=== PATIENT | female | born 1955 | race Caucasian/White ===

== ENCOUNTER 2016-08-02 05:07 | Inpatient (IN) | payer OTHER ==
[2016-06-28 11:47] VITALS: BMI 23.0
--- NOTE | 2016-06-28 12:11 | PAT Medication Instructions ---
Service Date Jun 28, 2016. Current Home Medication List Acetaminophen (Tylenol), 2 TAB PO Q6 PRN for Pain Calcium (Caltrate), Unknown Dose PO QAM Fiber Laxative (Fiber Laxative), 1 DOSE PO QAM Ibuprofen (Motrin), 400 MG PO Q6H PRN for Pain Multivitamin (Multivitamin), 1 TAB PO QAM Medication Instructions For Your Scheduled Surgery - Hold the following medications 7-10 days prior to surgery as directed by surgeon: Ibuprofen (Motrin), 400 MG PO Q6H PRN for Pain - Hold the following medications the morning of surgery: Calcium (Caltrate), Unknown Dose PO QAM Fiber Laxative (Fiber Laxative), 1 DOSE PO QAM Multivitamin (Multivitamin), 1 TAB PO QAM - Take the following medications the morning of surgery with a sip of water OTHERWISE NOTHING TO EAT OR DRINK AFTER MIDNIGHT: Acetaminophen (Tylenol), 2 TAB PO Q6 PRN for Pain (may take up to 4 hours prior to surgery if needed) If you have any questions please call us at [phone] or [phone] or [phone]
[2016-06-28 12:41] LABS: BASO % 0.4 %; BASO ABS # 0.02 K/uL (0-0.2); COMPLETE YES; EOS % 4.1 %; HEMATOCRIT 41.5 % (37-47); MEAN CELL VOLUME 87.4 fL (80-100); MEAN CORPUSCULAR HEMOGLOBIN 30.5 pg (25-34); MEAN CORPUSCULAR HGB CONC 34.9 g/dl (32-36); MEAN PLATELET VOLUME 10.2 fL (7.4-10.4); MONO % 9.7 %; NEUT % 57.8 %; PLATELET COUNT 205 K/uL (130-400); RED BLOOD COUNT 4.75 M/uL (4.2-5.4); WHITE BLOOD COUNT 4.64 K/uL (4.8-10.8)
[2016-06-28 12:51] LABS: URINE APPEARANCE CLEAR (CLEAR); URINE BILIRUBIN NEG (NEG); URINE COLOR YELLOW; URINE NITRITE NEG (NEG); URINE PH 7.5 (4.5-7.5); URINE SPECIFIC GRAVITY 1.021 (1.000-1.030); UROBILINOGEN NEG (NEG)
[2016-06-28 12:55] LABS: MANUAL MICROSCOPIC REQUIRED? NO; REVIEW REQ? NO
[2016-06-28 12:59] LABS: PARTIAL THROMBOPLASTIN RATIO 1.1; PROTHROMBIN TIME (PATIENT) 10.8 SECONDS (9.0-12.0)
[2016-06-28 13:10] LABS: CALCIUM 9.3 mg/dl (8.5-10.1); CREATININE 0.68 mg/dl (0.60-1.20); POTASSIUM 4.5 mmol/L (3.5-5.1)
--- NOTE | 2016-06-28 13:14 | DIAGNOSTIC IMAGING REPORT ---
CHEST 2 VIEWS ROUTINE CLINICAL HISTORY: pat preoperative evaluation COMPARISON STUDY: 01/19/2012 FINDINGS: Several small scattered calcified granulomas unchanged. No acute infiltrate. Diaphragms are smooth. No evidence for cardiac enlargement. IMPRESSION: No acute process. Electronically signed by: Tyrell Bone M.D. 06/28/2016 1:13 PM Dictated Date/Time: 06/28/2016 1:12 PM
[2016-06-28 13:40] LABS: ESTIMATED AVERAGE GLUCOSE 114 mg/dl; HA1C FLAG Normal (Normal)
--- NOTE | 2016-07-26 15:04 | History and Physical ---
History & Physical Date Jul 26, 2016. Chief Complaint Left Knee Pain History of Present Illness Lillie is a pleasant 60-year-old female who presents for preoperative evaluation prior to a left knee replacement. Patient states that they have been having pain in this knee for many years now, which has gradually worsened, it has now gotten to the point it is affecting her daily activities including walking, standing, going up and down steps. Patient has tried and failed conservative measures including previous injections and PO NSAIDs with no relief. At this point in time, patient has failed conservative measures and would like to proceed with a left knee replacement. Past Medical/Surgical History Medical Problems: (1) Esophageal Reflux Additional History Hepatic Disease: No Endocrine Disorder: No Kidney Disease: No Hypertension: No Heart Disease: No Bleeding Tendencies: No Infectious Diseases: No Allergies Coded Allergies: No Known Allergies (Unverified , 06/28/16) Home Medications Scheduled Calcium (Caltrate), Unknown Dose PO QAM Fiber Laxative (Fiber Laxative), 1 DOSE PO QAM Multivitamin (Multivitamin), 1 TAB PO QAM Scheduled PRN Acetaminophen (Tylenol), 2 TAB PO Q6 PRN for Pain Ibuprofen (Motrin), 400 MG PO Q6H PRN for Pain Physical Examination Skin: warm/dry, no rash Eyes: normal inspection, EOMI, sclerae normal ENT: normal ENT inspection, pharynx normal Head: normocephalic, atraumatic Neck: supple, no adenopathy, trachea midline Cardiovascular: regular rate, rhythm, no edema, no murmur Abdomen / GI: normal bowel sounds, non tender Addiitonal Comments: Knee ROM L * Active ROM - Flexion: 100 degrees, Extension: 5 degrees, Factors: pain, Description: Active painful ROM. Knee ROM R * Active ROM - Flexion: 100 degrees, Extension: 5 degrees, Factors: pain, Description: Active painful ROM. Strength LE Normal Strength Description - Normal lower extremity: Bilateral. Knee * Inspection - Gait: Limp. Alignment - Right: neutral, Left: neutral. Ecchymosis - Right: negative, Left: negative. Effusion - Right: mild, Left: mild. Swelling - Right: mild, Left: mild. Flexibility - Left: normal. Maximum tenderness - Right: Medial Joint Line, Left: Medial Joint Line. Patella exam - Crepitation - Right: mild, Left: mild. Patella position - Right: neutral, Left: neutral. Tilt - Left: equal. [facility]'s - medial - Left: Positive. Knee Normal Inspection - Atrophy - Right: Absent, Left: Absent. Skin - Right: Normal, Left: Normal. Patella exam - Apprehension - Right: Negative, Left: Negative. Q-angle - Right: Normal, Left: Normal. Omega's - Left: Negative. Harman's - lateral - Left: Negative. Posterior drawer - Right: Negative, Left : Negative. Anterior drawer - Right: Negative, Left: Negative. Pivot shift - Left: Negative. Valgus stress - Left: Negative. Varus stress - Left: Negative. Extensor lag - Left: Normal. Neurovascular LE Normal Neurovascular examination including reflexes, sensation , and pulses is within normal limits. LEFT KNEE XRAY Xrays reviewed of the Left knee showing findings consistent with degenerative joint disease including joint space narrowing, subchondral sclerosis and peripheral osteophyte formation. no acute bony pathology, overall varus alignment. Impression: degenerative joint disease of the left knee with no acute bony pathology noted. Diagnosis 1) Left knee DJD- Further care discussed with patient and at this point in time has failed conservative measures and would like to proceed with a left total knee replacement. Plan on discharge will be home with outpatient physical therapy. DVT prophalaxis with TEDs, SCDs and will also place on aspirin 81 mg p.o. b.i.d. for a month postop. Patient will have follow up appointment in our office two weeks post op for staple/suture removal and re-evaluation. Patient otherwise has no other questions or concerns. 2) GERD
[2016-08-02] VITALS (9 sets, daily range): BP systolic 92–139; BP diastolic 56–81; PULSE 66–78; TEMP 36.4–36.7; O2SAT 95–100; Ht 162.6 cm; Wt 62.4 kg
[~2016-08-02] VITALS: Ht 162.6 cm; Wt 62.4 kg
[~2016-08-02 05:07] MED LIST: ACET-1256 PO; CALCTAB5 PO; FIBER PO; IBUP-1459 PO; MULT-506 PO
[2016-08-02] MEDS ORDERED: ACETAMINOPHEN 500 MG TAB PO SCH (06:00)
[2016-08-02] MEDS ORDERED: FAMOTIDINE 20 MG TAB PO SCH (06:00)
[2016-08-02] MEDS ORDERED: LACTATED RINGER'S 1000ML 500 ML IV ONE (06:00)
[2016-08-02] MEDS ORDERED: CeleBREX 200 MG CAP PO SCH (06:00)
[2016-08-02] MEDS ORDERED: GABAPENTIN 300 MG CAP PO SCH (06:00)
[2016-08-02] MEDS ORDERED: METOCLOPRAMIDE HCL 10 MG TAB PO SCH (06:00)
[2016-08-02] MEDS ORDERED: CEFAZOLIN 2000 MG/60 ML D5W 60 ML IV SCH (06:00)
[2016-08-02] MEDS ORDERED: DEXAMETHASONE 4 MG TAB PO SCH (06:00)
[2016-08-02] MEDS ORDERED: LACTATED RINGER'S 1000ML IV SCH (06:00)
[2016-08-02] MEDS ORDERED: LACTATED RINGER'S 1000ML 1,000 ML IV SCH (06:00)
[2016-08-02] MEDS ORDERED: ROPIVACAINE 5MG/ML 30 ML 150 MG, BUPIVACAINE/EPINEPHR 0.5% MPF 30 ML, KETOROLAC TROMETH... INFIL SCH ×7 (06:00)
[2016-08-02] MEDS: TRANEXAMIC ACID INJ 1,000 MG in SODIUM CHLORIDE 0.9% 100ML 100 ML IV SCH ×2 (06:11→12:26)
[2016-08-02] MEDS ORDERED: BUPIVACAINE 0.25% 30 ML VIAL ONE (06:33)
[2016-08-02] MEDS ORDERED: BUPIVACAINE 0.5 % 5 MG/1 ML PF 10ML VIAL ONE (06:33)
[2016-08-02] MEDS ORDERED: POVIDONE-IODINE OP SOLN 30 ML BTL ONE (06:40)
[2016-08-02] MEDS ORDERED: BACITRACIN 50000 UNIT VIAL ONE (06:40)
[2016-08-02] MEDS ORDERED: ORTHO JOINT ANESTHETIC ONE (06:40)
[2016-08-02] MEDS ORDERED: PROPOFOL IV EMULSION 10 MG/ML 20 ML VIAL IV ONE (06:45)
[2016-08-02] MEDS ORDERED: ONDANSETRON INJ 2 MG/ML 2 ML VIAL ONE (06:45)
[2016-08-02] MEDS ORDERED: MIDAZOLAM HCL 1 MG/ML 2ML VIAL ONE (06:45)
[2016-08-02] MEDS ORDERED: FENTANYL CITRATE INJ 50 MCG/1 ML 2 ML VIAL ONE (06:45)
--- NOTE | 2016-08-02 06:45 | History & Physical Bridge Note ---
H&P Re-Evaluation Bridge Note: I have examined the patient, reviewed the History & Physical and in the interval since the performance of the History & Physical I have noted the following changes of clinical significance: No changes noted
[2016-08-02] MEDS ORDERED: PHENYLEPHRINE HCL INJ 10 MG/ML VIAL ONE (07:37)
[2016-08-02] MEDS ORDERED: EpHEDrine SULFATE INJ 50 MG/ML AMP IV PRN (07:45)
[2016-08-02] MEDS ORDERED: ATROPINE SULFATE 0.1 MG/ML 5ML SYR IV PRN (07:45)
[2016-08-02] MEDS ORDERED: PHENYLEPHRINE 100MCG/ML 5ML SYR IV PRN (07:45)
[2016-08-02] MEDS ORDERED: ONDANSETRON INJ 2 MG/ML 2 ML VIAL IV PRN ×2 (07:45→08:45)
[2016-08-02] MEDS ORDERED: HYDROmorphone INJ 2 MG/ML SYR/VIAL IV PRN (07:45)
[2016-08-02] MEDS ORDERED: KETOROLAC TROMETHAMINE 30 MG/ML VIAL IV. PRN ×2 (07:45→08:45)
--- NOTE | 2016-08-02 07:53 | [facility] Post Operative Brief Note ---
Immediate Operative Summary Operative Date Aug 02, 2016. Pre-Operative Diagnosis Left knee degenerative joint disease Post-Operative Diagnosis Same as preop Procedure(s) Performed Left total knee arthroplasty Surgeon Dr. Huber Aerospace Technician Surgeon(s) Mello Sandoval PA-C Estimated Blood Loss 5 cc Findings severe djd lt knee Specimens A: left knee bone and tissue Complication(s) None Disposition Recovery Room / PACU
--- NOTE | 2016-08-02 08:34 | OPERATIVE REPORT ---
DATE OF OPERATION: 08/02/2016 PREOPERATIVE DIAGNOSIS: Severe end-stage tricompartmental degenerative joint disease left knee. POSTOPERATIVE DIAGNOSIS: Severe end-stage tricompartmental degenerative joint disease left knee. PROCEDURE: Left total knee arthroplasty utilizing Browne \T\ Nephew Journey II nonblock total knee arthroplasty size 4 femur, 4 tibia, 9 poly, 29 oval patella. SURGEON: Dr. Huber. CLERICAL SECRETARY: Tyrell Sandoval PA-C who was necessary for prepping, draping, retraction, wound closure of deep fascia, subQ, and skin and was necessary for the case. ESTIMATED BLOOD LOSS: 5 mL. TOURNIQUET TIME: 40 minutes. COMPLICATIONS: None. GROSS FINDINGS: The patient is a very pleasant 60-year-old white female being seen and evaluated for complaints of ongoing pain attributable to her left knee. She presents for left total knee arthroplasty. OPERATION AND FINDINGS: PROCEDURE: The patient was properly prepped and draped in supine position for total knee arthroplasty after identifying the appropriate surgical site. An anterior midline incision was made through the subcutaneous tissues down to the region of the extensor mechanism. A medial parapatellar incision was subsequently made. Meticulous hemostasis was obtained and performed at all times. The patella having been subluxed lateralward, medial and lateral meniscal remnants were excised. The patellar cut was then initially made and was sized to the appropriate size. After subluxing the tibia forward the appropriate meniscal fragments having been removed the distal femur was then cut first utilizing a Browne \T\ Nephew block. The distal femoral cuts and chamfer cuts were all made under direct visualization and the proximal tibial osteotomy cut was also made utilizing Browne \T\ Nephew blocks and checked with an extramedullary guide. The appropriate trial components on the femur and tibia were placed. Appropriate trial spacers were used to check flexion and extension gaps. With flexion and extension gaps being equal, the components were then subsequently after thorough irrigation and debridement lavage components were then subsequently cemented in the following order: femur, tibia and patella. Exparel was used for intraoperative anesthesia, the medial parapatellar incision was closed utilizing #1 Vicryl, subQ was closed with 2-0 Vicryl, skin was closed with skin clips. A sterile compression dressing was placed. The patient was taken to recovery room in stable condition. Due to the complex nature of the procedure, the entire surgery was performed with the operational assistance of Tyrell Sandoval PA-C. The state tested nursing assistant, under direct supervision, was involved in the actual performance of all aspects of the surgical procedure including hemostasis, tissue retraction and incision, instrument management, patient positioning, and wound closure. I attest to the content of the Intraoperative Record and any orders documented therein. Any exceptio ns are noted below.
[2016-08-02] MEDS ORDERED: ALUMINUM/MAGNESIUM/SIMETH (MAALOX MAX) 30 ML UDC PO PRN (08:45)
[2016-08-02] MEDS ORDERED: METOCLOPRAMIDE HCL INJ 5 MG/ML 2 ML VIAL IV PRN (08:45)
[2016-08-02] MEDS ORDERED: SOD PHOSPHATE/SOD BIPHOSPHATE ENEMA 132 ML BTL PR PRN (08:45)
[2016-08-02] MEDS ORDERED: MAGNESIUM HYDROXIDE SUSP 30 ML UDC PO PRN (08:45)
[2016-08-02] MEDS ORDERED: BISACODYL 10 MG SUPP PR PRN (08:45)
[2016-08-02] MEDS ORDERED: MoRPHine SULFATE 2 MG/ML CARP IV PRN (08:45)
--- NOTE | 2016-08-02 08:52 | Anesthesiology Progress Note ---
Anesthesia Post Op Note Date & Time Aug 02, 2016 at 08:52 Vital Signs Pain Intensity: 0 Vital Signs Past 12 Hours Date Time Temp Pulse Resp B/P Pulse Ox O2 Delivery O2 Flow Rate FiO2 08/02/16 08:28 36.2 96 16 114/53 96 Mask 10 08/02/16 05:38 36.6 75 20 139/81 100 Room Air Notes Mental Status: alert / awake / arousable, participated in evaluation Pt Amnestic to Procedure: Yes Nausea / Vomiting: adequately controlled Pain: adequately controlled Airway Patency, RR, SpO2: stable & adequate BP & HR: stable & adequate Hydration State: stable & adequate Neuraxial Anesthesia: was administered, sensory block is resolving Anesthetic Complications: no major complications apparent
--- NOTE | 2016-08-02 08:57 | DIAGNOSTIC IMAGING REPORT ---
LEFT KNEE 1 OR 2 VIEWS ROUTINE CLINICAL HISTORY: Postoperative evaluation. COMPARISON: MRI of the left knee June 10, 2015. FINDINGS: Alignment of the left knee arthroplasty is anatomic. There is no fracture or unexpected radiopaque foreign body. Drains are in place. IMPRESSION: Expected findings following total left knee arthroplasty. Electronically signed by: Guille Palacio M.D. 08/02/2016 8:56 AM Dictated Date/Time: 08/02/2016 8:56 AM
[2016-08-02] MEDS ORDERED: MoRPHine SULFATE 10 MG/ML CARP/VIAL IV PRN (10:00)
[2016-08-02] MEDS ORDERED: MoRPHine SULFATE 4 MG/ML 1 ML CARP\\VIAL IV PRN (10:00)
[2016-08-02] MEDS: DOCUSATE SODIUM 100 MG CAP PO SCH ×2 (12:26→21:06)
[2016-08-02] MEDS: PANTOprazole SOD 40 MG TAB PO SCH (12:27)
[2016-08-02] MEDS: MULTIVITAMIN TAB PO SCH (12:27)
[2016-08-02] MEDS: D5W AND 1/2NSS + 20MEQ KCL 1,000 ML IV SCH ×2 (12:28→22:29)
[2016-08-02] MEDS: ACETAMINOPHEN 500 MG TAB PO SCH ×2 (14:02→22:29)
[2016-08-02] MEDS: CEFAZOLIN IV 1,000 MG in DEXTROSE 5% 50ML 50 ML IV SCH ×2 (15:15→22:29)
[2016-08-02] MEDS: OXYCODONE HCL 10 MG TABCR (OXYCONTIN) PO SCH (21:00)
[2016-08-02] MEDS: SENNA 8.6 MG TAB PO SCH (21:06)
[2016-08-02] MEDS: ASPIRIN 81 MG ECTAB PO SCH (21:06)
[2016-08-03 03:34] VITALS: BP 108/65; PULSE 72; TEMP 36.6; O2SAT 98
[2016-08-03] MEDS: ACETAMINOPHEN 500 MG TAB PO SCH ×3 (05:38→20:57)
[2016-08-03 06:49] LABS: MEAN CORPUSCULAR HEMOGLOBIN 29.6 pg (25-34); MEAN CORPUSCULAR HGB CONC 34.4 g/dl (32-36); MEAN PLATELET VOLUME 10.4 fL (7.4-10.4); PLATELET COUNT 154 K/uL (130-400); RED BLOOD COUNT 3.72 M/uL (4.2-5.4); WHITE BLOOD COUNT 11.02 K/uL (4.8-10.8)
[2016-08-03 06:56] VITALS: BP 109/52; PULSE 71; TEMP 36.8; O2SAT 99
[2016-08-03 07:01] LABS: PROTHROMBIN TIME (PATIENT) 10.7 SECONDS (9.0-12.0)
[2016-08-03 07:14] LABS: BUN/CREATININE RATIO 21.6 (10-20); CALCIUM 8.5 mg/dl (8.5-10.1); CREATININE 0.64 mg/dl (0.60-1.20)
--- NOTE | 2016-08-03 08:24 | Anesthesiology Progress Note ---
Anesthesia Post Op Note Date & Time Aug 03, 2016 at 08:24 Vital Signs Pain Intensity: 0.0 Vital Signs Past 12 Hours Date Time Temp Pulse Resp B/P Pulse Ox O2 Delivery O2 Flow Rate FiO2 08/03/16 07:35 Room Air 08/03/16 06:56 36.8 71 17 109/52 99 Room Air 08/03/16 03:34 36.6 72 16 108/65 98 Room Air 08/03/16 00:32 Room Air 08/02/16 23:18 36.6 72 16 102/63 98 Room Air Notes Mental Status: alert / awake / arousable, participated in evaluation Pt Amnestic to Procedure: Yes Nausea / Vomiting: adequately controlled Pain: adequately controlled Airway Patency, RR, SpO2: stable & adequate BP & HR: stable & adequate Hydration State: stable & adequate Neuraxial Anesthesia: sensory block resolved Anesthetic Complications: no major complications apparent
[2016-08-03] MEDS: D5W AND 1/2NSS + 20MEQ KCL 1,000 ML IV SCH (08:51)
[2016-08-03] MEDS: ASPIRIN 81 MG ECTAB PO SCH ×2 (08:51→20:56)
[2016-08-03] MEDS: DOCUSATE SODIUM 100 MG CAP PO SCH ×2 (08:51→20:56)
[2016-08-03] MEDS: MULTIVITAMIN TAB PO SCH (08:52)
[2016-08-03] MEDS: OXYCODONE HCL 10 MG TABCR (OXYCONTIN) PO SCH ×2 (08:52→20:57)
[2016-08-03] MEDS: PANTOprazole SOD 40 MG TAB PO SCH (08:52)
[2016-08-03] MEDS: CeleBREX 200 MG CAP PO SCH ×2 (08:53→20:56)
[2016-08-03] MEDS: OXYCODONE HCL IR 5 MG TAB (IMMEDIATE RELEASE) PO PRN ×2 (10:02→15:18)
--- NOTE | 2016-08-03 10:36 | Orthopedic Progress Note ---
Orthopedic Progress Note Date of Service Aug 03, 2016. Subjective Post OP Day: 1 Reports: feeling well, Denies: SOB, calf pain, chest pain, light headedness, nausea / vomiting Objective calves soft nontender, N/V intact, dressing C/D/I, A&O x3, toes mobile Date Time Temp Pulse Resp B/P Pulse Ox O2 Delivery O2 Flow Rate FiO2 08/03/16 07:35 Room Air 08/03/16 06:56 36.8 71 17 109/52 99 Room Air 08/03/16 03:34 36.6 72 16 108/65 98 Room Air 08/03/16 00:32 Room Air 08/02/16 23:18 36.6 72 16 102/63 98 Room Air 08/02/16 19:09 36.7 78 17 97/60 95 Room Air 08/02/16 16:04 Nasal Cannula 2.0 08/02/16 15:24 36.6 68 16 101/59 99 Nasal Cannula 2.0 08/02/16 13:59 36.4 76 16 93/56 98 Nasal Cannula 2.0 08/02/16 13:00 36.5 77 16 92/57 98 Nasal Cannula 2.0 08/02/16 12:00 36.5 66 16 97/62 99 Nasal Cannula 2.0 08/02/16 11:20 36.5 73 16 114/68 99 Nasal Cannula 2.0 08/02/16 11:00 36.7 16 114/69 98 Nasal Cannula 2.0 08/02/16 11:00 98 Nasal Cannula 2.0 08/02/16 11:00 Nasal Cannula 2.0 08/02/16 10:35 97 Nasal Cannula 2.0 Laboratory Results 24 Hours: Test 08/03/16 06:25 Hematocrit 32.0 % Hemoglobin 11.0 g/dL Prothromb Time International Ratio 1.0 Prothrombin Time 10.7 SECONDS Assessment & Plan Assessment: POD 1 s/p Left TKA Plan: PT/OT Plan for dc to home tomorrow with Home Health Services Inhouse Planning Pain Management: Celebrex, Oxycontin, Morphine, PO Tylenol, Oxy IR DVT Prophylaxis: TEDs, SCDs, ASA Discharge Planning Discharge Planning: home with home health Pain Management: Celebrex, Oxycontin, PO Tylenol, Oxy IR DVT Prophylaxis: TEDs, ASA Therapy: Physical Therapy
[2016-08-03 11:29] VITALS: BP 93/50; PULSE 86; TEMP 36.8; O2SAT 96
--- NOTE | 2016-08-03 13:26 | Discharge Instructions ---
Discharge Instructions Date of Service Aug 03, 2016. Admission Reason for Admission: Left Knee Osteoarthritis Discharge Discharge Diagnosis / Problem: Left Total Knee Replacement Discharge Goals Goal(s): Decrease discomfort, Improve function, Increase independence Activity Recommendations Activity Limitations: as noted below Weightbearing Status: Left weightbearing . Instructions / Follow-Up Instructions / Follow-Up ACTIVITY RECOMMENDATIONS: SELF CARE INSTRUCTIONS AFTER TOTAL KNEE REPLACEMENT A. You may need to continue a physical therapy program after discharge from the hospital. There are several options available to you. Your doctor will assist you in selecting the best one for you. 1. An out-patient facility 2 to 3 times a week for therapy or home therapy. 2. Continue working on all exercises taught to you in the hospital. Your goals should be to increase bending of your knee to 90 degrees and beyond and to fully straighten your knee. B. You may progress at your own pace from walking with a walker or crutches to a cane; then to no assistive devices. C. Make walking a part of your daily routine. Be up as much as comfortable with rest periods throughout the day. Rest with leg elevation is very important. Use the ice wrap frequently for the first 3-4 weeks. D. There are no restrictions on activities. 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 E. Wear the long elastic stockings (MAYELA hose) 20 hours a day for 2 weeks after surgery. They can be removed several times a day for laundering and for a bath. F. You may shower, no tub baths until cleared by your doctor. SPECIAL CARE INSTRUCTIONS: VERY IMPORTANT TO READ AND REVIEW A. There are a few signs you need to watch for after you are home. Call [facility] if you notice any of the followin. Increased severe knee pain. Some pain is expected especially when you exercise. 2. Increased swelling in your leg or knee; pain or swelling of the calf muscle in either lower leg. 3. Any fluid drainage from the incision. 4. Shortness of breath or chest pain. B. Please call [facility] at if you have any concerns or questions about your operation or recovery. The doctor or his nurse will return your call promptly. C. You must take antibiotics before dental work, bladder, bowel or other surgery. Your doctor will provide you with a permanent care to carry describing this precaution. IMPORTANT: * REMEMBER TO TAKE ASPIRIN, 81 MG, TWICE DAILY FOR 4 WEEKS UNLESS OTHERWISE DIRECTED. THIS IS YOUR BLOOD THINNER. * HIGH RISK PATIENTS MAY BE PRESCRIBED A STRONGER BLOOD THINNER. THIS WILL BE PROVIDED AT DISCHARGE. * CALL IF INCREASED PAIN, REDNESS, DRAINAGE OR FEVER GREATER THAT 101. * WEAR MAYELA HOSE 20 HOURS PER DAY FOR 2 WEEKS. * DERMABOND Prineo- This is a mesh tape dressing that is covered with glue. It should remain in place until the incision is properly healed, usually 10-14 days. This dressing is designed to naturally slough off. You may trim the excess mesh tape as it peels off. Incision may be briefly wet in a shower. Dry immediately by blotting with a clean, dry towel. Do not bath or swim until instructed by your doctor. Do not scratch, rub, or pick at the dressing. Do not apply any topical ointments or lotions until dressing is completely removed and/or instructed by your doctor. There may be a small piece of suture material at one end of your incision. Do not pull or trim this. If it is bothersome or catching on clothing, you may cover it with a band-aid. FOLLOW UP VISIT: If appointment is not already scheduled: Please call [facility] to make a follow-up appointment for 2 weeks after your surgery at . Current Hospital Diet Patient's current hospital diet: Regular Diet Discharge Diet Recommended Diet: Regular Diet Procedures Procedures Performed: Left total knee arthroplasty Pending Studies Studies pending at discharge: no Laboratory Results Hemoglobin A1c Test 06/28/16 12:16 Range/Units Estimated Average Glucose 114 mg/dl Hemoglobin A1c 5.6 4.5-5.6 % Medical Emergencies . Who to Call and When: Medical Emergencies: If at any time you feel your situation is an emergency, please call 911 immediately. . Non-Emergent Contact Non-Emergency issues call your: Primary Care Provider, Surgeon . "Provider Documentation" section prepared by Tyrell Sandoval. VTE Core Measure Inpt VTE Proph given/why not?: Other Anticoagulation (ASA 81mg po bid x 1 month ), T.E.Didier Garcia, SCD's [place] Drug Monitoring Program Search Results: patient reviewed within database
[2016-08-03 15:07] VITALS: BP 112/64; PULSE 85; TEMP 37; O2SAT 99
[2016-08-03] MEDS: SENNA 8.6 MG TAB PO SCH (20:56)
[2016-08-03 23:23] VITALS: BP 110/70; PULSE 82; TEMP 36.8; O2SAT 98
[2016-08-04] MEDS: ACETAMINOPHEN 500 MG TAB PO SCH (05:50)
[2016-08-04 06:10] VITALS: BP 111/70; PULSE 80; TEMP 36.5; O2SAT 99
--- NOTE | 2016-08-04 07:05 | Orthopedic Progress Note ---
Orthopedic Progress Note Date of Service Aug 04, 2016. Subjective Post OP Day: 2 Reports: feeling well, pain controlled w PO medications, Denies: SOB, calf pain , chest pain, complaints, light headedness, nausea / vomiting Objective calves soft nontender, N/V intact, capillary refill less than 2 sec., incision C /D/I, A&O x3, toes mobile Date Time Temp Pulse Resp B/P Pulse Ox O2 Delivery O2 Flow Rate FiO2 08/04/16 06:10 36.5 80 16 111/70 99 Room Air 08/04/16 00:15 Room Air 08/03/16 23:23 36.8 82 16 110/70 98 Room Air 08/03/16 15:07 37.0 85 18 112/64 99 Room Air 08/03/16 11:50 Room Air 08/03/16 11:29 36.8 86 17 93/50 96 Room Air 08/03/16 07:35 Room Air Assessment & Plan Assessment: POD 2 s/p Left TKA Plan: PT/OT Plan for dc to home today after PT with Home Health Services Discharge Planning Discharge Planning: home with home health Pain Management: Celebrex, Oxycontin, PO Tylenol, Oxy IR DVT Prophylaxis: TEDs, ASA Therapy: Physical Therapy
[2016-08-04] MEDS ORDERED: OXYSR10 PO (07:20)
[2016-08-04] MEDS ORDERED: ASPEC81 PO (07:20)
[2016-08-04] MEDS ORDERED: CLC100 PO (07:20)
[2016-08-04] MEDS ORDERED: RXC5 PO (07:20)
[2016-08-04] MEDS ORDERED: CLB200 PO (07:20)
[2016-08-04] MEDS ORDERED: ONDA8TAB6 PO (07:20)
[2016-08-04] MEDS ORDERED: ACET-1138 PO (07:20)
--- NOTE | 2016-08-04 07:23 | Discharge Summary ---
Orthopedic Discharge Summary Admission Date/Reason Aug 02, 2016 at 08:38 Left Knee Osteoarthritis. Discharge Date/Disposition Aug 04, 2016 Home with services Diagnosis Principal Diagnosis: left knee osteoarthritis Procedure(s) Performed PROCEDURE: Left total knee arthroplasty utilizing Browne \T\ Nephew Journey II nonblock total knee arthroplasty size 4 femur, 4 tibia, 9 poly, 29 oval patella. Consultations NONE Medication Reconciliation New Medications: Ondansetron Hcl (Zofran) 8 Mg Tab 8 MG PO Q8 PRN for Nausea, #20 TAB Acetaminophen (Tylenol Extra Strength) 500 Mg Tab 1000 MG PO Q8H, #126 TAB Aspirin (Aspirin EC Low Dose) 81 Mg Ectab 81 MG PO BID for 30 Days, #60 TAB Celecoxib (Celebrex) 200 Mg Cap 200 MG PO BID, #60 CAP Docusate Sodium (Docusate Sodium) 100 Mg Cap 100 MG PO BID for 15 Days, #30 CAP Oxycodone HCl (Oxycontin) 10 Mg Tabcr 10 MG PO Q12, #20 Oxycodone HCl (Oxycodone HCl) 5 Mg Tab 5-10 MG PO Q4H PRN for Pain, #60 TAB Continued Medications: Calcium (Caltrate) Unknown Strength Tab Unknown Dose PO QAM, TAB Fiber Laxative (Fiber Laxative) Ea 1 DOSE PO QAM Multivitamin (Multivitamin) Tab 1 TAB PO QAM, TAB Discontinued Medications: Acetaminophen (Tylenol) 500 Mg Tab 2 TAB PO Q6 PRN for Pain, TAB Ibuprofen (Motrin) 400 Mg Tab 400 MG PO Q6H PRN for Pain, TAB Admission Physical Exam As per Admitting History & Physical. Hospital Course Patient was a same day admission after undergoing a successful left TKA. she tolerated the procedure well. Post-operatively, her activity was progressed and well tolerated. Please refer to daily progress notes and PT notes for complete details. After exam on 08/04/16, patient felt to be stable for discharge home with home PT. Patient will f/u in the office in 2 weeks for further evaluation including x-rays and incision check, sooner if having any issues or concerns. Below are pertinent labs/studies during their hospital stay: Last Resulted CBC 08/03/16 06:25 Last Resulted BMP 08/03/16 06:25 Last Vital Signs Documentation Date Time Temp Pulse Resp B/P Pulse Ox O2 Delivery O2 Flow Rate FiO2 08/04/16 06:10 36.5 80 16 111/70 99 Room Air 08/02/16 16:04 2.0 Discharge Instructions ACTIVITY RECOMMENDATIONS: SELF CARE INSTRUCTIONS AFTER TOTAL KNEE REPLACEMENT A. You may need to continue a physical therapy program after discharge from the hospital. There are several options available to you. Your doctor will assist you in selecting the best one for you. 1. An out-patient facility 2 to 3 times a week for therapy or home therapy. 2. Continue working on all exercises taught to you in the hospital. Your goals should be to increase bending of your knee to 90 degrees and beyond and to fully straighten your knee. B. You may progress at your own pace from walking with a walker or crutches to a cane; then to no assistive devices. C. Make walking a part of your daily routine. Be up as much as comfortable with rest periods throughout the day. Rest with leg elevation is very important. Use the ice wrap frequently for the first 3-4 weeks. D. There are no restrictions on activities. You may ride in a car, shop, participate in vet assistant and all social activities. E. Wear the long elastic stockings (MAYELA hose) 20 hours a day for 2 weeks after surgery. They can be removed several times a day for laundering and for a bath. F. You may shower, no tub baths until cleared by your doctor. SPECIAL CARE INSTRUCTIONS: VERY IMPORTANT TO READ AND REVIEW A. There are a few signs you need to watch for after you are home. Call [facility] if you notice any of the followin. Increased severe knee pain. Some pain is expected especially when you exercise. 2. Increased swelling in your leg or knee; pain or swelling of the calf muscle in either lower leg. 3. Any fluid drainage from the incision. 4. Shortness of breath or chest pain. B. Please call [facility] at if you have any concerns or questions about your operation or recovery. The doctor or his nurse will return your call promptly. C. You must take antibiotics before dental work, bladder, bowel or other surgery. Your doctor will provide you with a permanent care to carry describing this precaution. IMPORTANT: * REMEMBER TO TAKE ASPIRIN, 81 MG, TWICE DAILY FOR 4 WEEKS UNLESS OTHERWISE DIRECTED. THIS IS YOUR BLOOD THINNER. * HIGH RISK PATIENTS MAY BE PRESCRIBED A STRONGER BLOOD THINNER. THIS WILL BE PROVIDED AT DISCHARGE. * CALL IF INCREASED PAIN, REDNESS, DRAINAGE OR FEVER GREATER THAT 101. * WEAR MAYELA HOSE 20 HOURS PER DAY FOR 2 WEEKS. * DERMABOND Prineo- This is a mesh tape dressing that is covered with glue. It should remain in place until the incision is properly healed, usually 10-14 days. This dressing is designed to naturally slough off. You may trim the excess mesh tape as it peels off. Incision may be briefly wet in a shower. Dry immediately by blotting with a clean, dry towel. Do not bath or swim until instructed by your doctor. Do not scratch, rub, or pick at the dressing. Do not apply any topical ointments or lotions until dressing is completely removed and/or instructed by your doctor. There may be a small piece of suture material at one end of your incision. Do not pull or trim this. If it is bothersome or catching on clothing, you may cover it with a band-aid. FOLLOW UP VISIT: If appointment is not already scheduled: Please call [facility] to make a follow-up appointment for 2 weeks after your surgery at .
[2016-08-04] MEDS: CeleBREX 200 MG CAP PO SCH (07:36)
[2016-08-04] MEDS: ASPIRIN 81 MG ECTAB PO SCH (07:36)
[2016-08-04] MEDS: MULTIVITAMIN TAB PO SCH (07:36)
[2016-08-04] MEDS: DOCUSATE SODIUM 100 MG CAP PO SCH (07:36)
[2016-08-04] MEDS: OXYCODONE HCL 10 MG TABCR (OXYCONTIN) PO SCH (07:37)
[2016-08-04] MEDS: PANTOprazole SOD 40 MG TAB PO SCH (07:37)
[2016-08-04 07:46] VITALS: BP 118/60; PULSE 80; TEMP 36.6; O2SAT 97
[2016-08-04 08:26] VITALS: BP 118/60; PULSE 80; TEMP 36.6; O2SAT 97
[2016-08-04 09:03] VITALS: O2SAT 97
[2016-08-04 09:26] VITALS: BP 106/63; PULSE 81
== END 2016-08-04 10:38 | disposition home health service (06) | DRG 470 ==
LOC: ENRESERVDT → ENRESERVTM → C.ACU 05:07 → C.3E 08:38
PROVIDERS: ADMIT Orthopaedic Surgery; ATTEND Orthopaedic Surgery
PROC: 0SRD0J9 Replacement of Left Knee Joint with Synthetic Substitute, Cemented, Open Approach (ICD-10-PCS; principal; 2016-08-02 07:00)
DX: M17.12 Unilateral primary osteoarthritis, left knee (principal); K21.9 Gastro-esophageal reflux disease without esophagitis; M54.5 Low back pain; Z79.1 Long term (current) use of non-steroidal anti-inflammatories (NSAID); Z79.899 Other long term (current) drug therapy

== ENCOUNTER → 2016-11-20 | Outpatient (CLI) | payer OTHER ==
[~2016-11-20] MED LIST changes: +ACET-1138 PO; -ACET-1256 PO; +ASPEC81 PO; +CLB200 PO; +CLC100 PO; -IBUP-1459 PO; +ONDA8TAB6 PO; +OXYSR10 PO; +RXC5 PO
[2016-11-20 12:38] LABS: ALT/SGPT 18 U/L (12-78); AST/SGOT 15 U/L (15-37); BLOOD UREA NITROGEN 15 mg/dl (7-18); BUN/CREATININE RATIO 24.5 (10-20); CALCIUM 9.1 mg/dl (8.5-10.1); CARBON DIOXIDE 32 mmol/L (21-32); CHLORIDE 104 mmol/L (98-107); CHOLESTEROL 182 mg/dl (0-200); GLUCOSE 90 mg/dl (70-99); POTASSIUM 4.1 mmol/L (3.5-5.1); SODIUM 141 mmol/L (136-145)
[2016-11-20 12:41] LABS: ALKALINE PHOSPHATASE 106 U/L (45-117); CHOLESTEROL/HDL RATIO 2.8; HDL CHOLESTEROL 65 mg/dl; LDL CHOLESTEROL CALCULATED 106 mg/dl; TRIGLYCERIDES 57 mg/dl (0-150); VERY LOW DENSITY LIPOPROT CALC 11 mg/dl
== END | disposition home or self-care (01) ==
LOC: C.LAB1850 10:40
PROVIDERS: ATTEND Internal Medicine
DX: Z00.00 Encounter for general adult medical examination without abnormal findings (principal); Z13.29 Encounter for screening for other suspected endocrine disorder

== ENCOUNTER → 2016-12-28 | Outpatient (CLI) | payer OTHER | END | disposition home or self-care (01) | LOC: C.MAMM 09:15 | PROVIDERS: ATTEND Internal Medicine | DX: M85.851 Other specified disorders of bone density and structure, right thigh (principal); M85.852 Other specified disorders of bone density and structure, left thigh; M85.88 Other specified disorders of bone density and structure, other site; M81.0 Age-related osteoporosis without current pathological fracture ==

== ENCOUNTER → 2017-02-08 | Outpatient (CLI) | payer OTHER ==
[~2017-02-08] MED LIST changes: -ONDA8TAB6 PO
--- NOTE | 2017-02-08 13:55 | MAMMOGRAPHY REPORT ---
BILATERAL DIGITAL SCREENING MAMMOGRAM TOMOSYNTHESIS WITH CAD: 02/08/2017 CLINICAL HISTORY: Routine screening. Patient has no complaints. TECHNIQUE: Breast tomosynthesis in addition to standard 2D mammography was performed. Current study was also evaluated with a Computer Aided Detection (CAD) system. COMPARISON: Comparison is made to exams dated: 09/16/2015 mammogram, 09/14/2014 mammogram, 09/12/2013 ma mmogram, 09/11/2012 mammogram, 09/11/2011 mammogram, and 09/08/2010 mammogram - [facility] BREAST COMPOSITION: The tissue of both breasts is heterogeneously dense, which may obscure small mas ses. FINDINGS: No suspicious masses, calcifications, or areas of architectural distortion are noted in ei ther breast. There has been no significant interval change compared to prior exams. Scattered bilater al benign-appearing calcifications are not significantly changed. Right superior posterior breast as ymmetry on the MLO view is similar to prior exams including the 2014 and 2011 exams, and has the appe arance of normal fibroglandular tissue on the tomosynthesis images. IMPRESSION: ACR BI-RADS CATEGORY 2: BENIGN There is no mammographic evidence of malignancy. A 1 year screening mammogram is recommended. The pa tient will receive written notification of the results. Approximately 10% of breast cancers are not detected with mammography. A negative mammographic report should not delay biopsy if a clinically suggestive mass is present. Edith August M.D. /:02/08/2017 12:26:53 Snow Remover: Mita MICHAEL(Lazaro)(Davian), [facility] letter sent: Normal 1/2 BI-RADS Code: ACR BI-RADS Category 2: Benign
== END | disposition home or self-care (01) ==
LOC: C.MAMM 10:34
PROVIDERS: ATTEND Internal Medicine
DX: Z12.31 Encounter for screening mammogram for malignant neoplasm of breast (principal)

== ENCOUNTER 2017-07-06 18:03 | Emergency (ER) | payer OTHER ==
[~2017-07-06] VITALS: Ht 162.6 cm; Wt 64.8 kg
[2017-07-06 18:04] VITALS: TEMP 36.6; Ht 162.6 cm; Wt 64.8 kg
[2017-07-06] MEDS ORDERED: CYAN100020 PO (18:54)
[2017-07-06] MEDS ORDERED: ASCO500T3 PO (18:54)
[2017-07-06] MEDS ORDERED: POTA99TA PO (18:54)
[2017-07-06] MEDS ORDERED: FSM70 PO (18:54)
[2017-07-06] MEDS ORDERED: CHOLCAP5 PO (18:54)
[2017-07-06] MEDS ORDERED: MAGN400T6 PO (18:54)
--- NOTE | 2017-07-06 18:59 | DIAGNOSTIC IMAGING REPORT ---
L-SPINE MIN 4 VIEWS ROUTINE HISTORY: 61 years-old Female right low back pain, worker's comp acute right lower back pain COMPARISON: Lumbar spine radiographs 04/22/2015 TECHNIQUE: 5 views of the lumbar spine FINDINGS: There are 5 nonrib-bearing lumbar type vertebral segments present. Minimal levoscoliosis. Severe disc space narrowing redemonstrated at L5-S1. Mild multilevel endplate spurring is noted. There is mild to moderate intervertebral disc space narrowing at L1-L2 with mostly mild multilevel facet arthropathy. No acute fracture or subluxation. No spondylolysis or spondylolisthesis. Indeterminate calcifications are again seen projecting over the right midabdomen. Probable phleboliths of the pelvis. IMPRESSION: 1. No acute fracture or subluxation. 2. Degenerative changes as above. The above report was generated using voice recognition software. It may contain grammatical, syntax or spelling errors. Electronically signed by: Lizandro Blue M.D. 07/06/2017 6:57 PM Dictated Date/Time: 07/06/2017 6:55 PM
--- NOTE | 2017-07-06 19:13 | EMERGENCY ROOM VISIT NOTE ---
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 The patient grabbed the wall to help her stand upright, and has been able to walk and has gotten slightly increased range of motion. The patient immediately took 2 ibuprofen and 2 Tylenol which she states helped with the symptoms normally. The patient notes the pain as sharp and a 6/10. The patient denies any loss of control of their bowel or bladder functions. There has been no leg numbness or weakness, and no change in sensation. No nausea or vomiting or abdominal pain. No chest pain or shortness of breath. The patient has not had prior back injuries, but has had pain like this before. No dysuria or increased urinary frequency. REVIEW OF SYSTEMS: A 10 system review of systems was performed with positives and pertinent negatives listed in the history of present illness. All other systems were reviewed and are negative. ALLERGIES: None MEDICATIONS: None PMH: None SOCIAL HISTORY: The patient lives locally with family. She denies drug, alcohol, tobacco use. PHYSICAL EXAM: VITALS: Vitals are noted on the nurse's note and reviewed by myself. Vital signs stable. GENERAL: This is a 61-year-old white female, in no acute distress, nondiaphoretic, well-developed well-nourished. SKIN: The skin was without rashes, erythema, edema, or bruising. Capillary refill less than 2 seconds. NECK: Supple without nuchal rigidity. No cervical spine tenderness. No paraspinous muscle tenderness. HEART: Regular rate and rhythm without murmurs gallops or rubs. LUNGS: Clear to auscultation bilaterally without wheezes, rales or rhonchi. ABDOMEN: Positive bowel sounds x 4. Normal tympanic percussion. Soft, nontender, without masses or organomegaly. Daugherty sign negative. MUSCULOSKELETAL: No muscle atrophy, erythema, or edema noted of the back. There is no tenderness over the lumbar spinous processes. There is moderate tenderness over the paraspinous muscles on the right. There is no tenderness over the thoracic spine or paraspinous muscles. There are muscle spasms present. The patient is slow to move around with maximum tenderness with position changes. Negative straight leg raise test. NEURO: Patient was alert and oriented to person place and time. Normal sensation to light and sharp touch. Deep tendon reflexes 2+ in the lower extremities. Dorsalis pedis pulse 2+ bilaterally. Strength 5/5 and equal in the bilateral lower extremities. RADIOLOGY: L-SPINE MIN 4 VIEWS ROUTINE HISTORY: 61 years-old Female right low back pain, worker's comp acute right lower back pain COMPARISON: Lumbar spine radiographs 04/22/2015 TECHNIQUE: 5 views of the lumbar spine FINDINGS: There are 5 nonrib-bearing lumbar type vertebral segments present. Minimal levoscoliosis. Severe disc space narrowing redemonstrated at L5-S1. Mild multilevel endplate spurring is noted. There is mild to moderate intervertebral disc space narrowing at L1-L2 with mostly mild multilevel facet arthropathy. No acute fracture or subluxation. No spondylolysis or spondylolisthesis. Indeterminate calcifications are again seen projecting over the right midabdomen. Probable phleboliths of the pelvis. IMPRESSION: 1. No acute fracture or subluxation. 2. Degenerative changes as above. The above report was generated using voice recognition software. It may contain grammatical, syntax or spelling errors. Electronically signed by: Lizandro Blue M.D. 07/06/2017 6:57 PM Dictated Date/Time: 07/06/2017 6:55 PM EMERGENCY DEPARTMENT COURSE: The patient was seen and evaluated as above. X- rays of the lumbar spine were ordered and performed. These were reviewed by myself and radiologist as above. The patient was offered pain medication and/ or muscle relaxers and declines while here in the emergency department. She will be given a home pack for Flexeril to be used as needed for muscle spasms. The patient was encouraged to follow-up outpatient with [facility] on Sunday prior to returning to work. Discharge instructions reviewed, and the patient was discharged home in good condition. I attest that I have personally reviewed the patient's current medication list. Patient was found to have normal blood pressure on screening and does not require follow-up. Etiologies such as lumbago, sciatica, cauda equina, epidural abscess, osteomyelitis, fracture, aortic disease, metastatic disease, infection, renal colic, gastrointestinal, as well as others were entertained. DIAGNOSIS: Lumbar strain Current/Historical Medications Scheduled Alendronate Sodium (Alendronate Sodium), 70 MG PO WK Ascorbic Acid (Vitamin C), 1 TAB PO DAILY Cholecalciferol (Vitamin D3), 5,000 INTER.UNIT PO DAILY Cyanocobalamin (Vitamin B12), 1 TAB PO DAILY Magnesium Oxide (Mag-Ox), 1 TAB PO DAILY Multivitamin (Multivitamin), 1 TAB PO QAM Potassium (Potassium), 1 TAB PO DAILY Allergies Coded Allergies: No Known Allergies (Unverified , 08/02/16) Vital Signs Date Time Temp Pulse Resp B/P (MAP) Pulse Ox O2 Delivery O2 Flow Rate FiO2 07/06/17 18:04 36.6 85 18 141/76 99 Room Air Departure Information Impression Primary Impression: Strain of lumbar region Dispostion Home / Self-Care Condition GOOD Prescriptions Cyclobenzaprine Hcl (FLEXERIL) 5 Mg Tab 1-2 TAB PO TID Y for Muscle Spasms, #18 TAB Prov: Sowmya Mcneil, PAWillie 07/06/17 Referrals RV. 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 You have been prescribed Flexeril (cyclobenzaprine) 1-2 tabs orally, three times per day. Do NOT exceed 30 mg (6 tabs) per day. Take your first dose at bedtime as it can make you drowsy. Always take all medications as prescribed. *NOTE: Flexeril Homepack is 10mg tablets. Take 1/2 - 1 tablet up to three times per day as needed for back pain. For pain control, you can use the following [id number]-whcihtg medicines (if >12 yo): Ibuprofen(Motrin, Advil) may be used for fever or pain. Use 600mg every six hours as needed. Take with food. Avoid using more than 2400mg in a 24 hour period. Do not use 2400mg per day for more than three consecutive days without physician direction. Prolonged inappropriate use can lead to stomach upset or ulcers. (AND/OR) Acetaminophen(Tylenol) may be used for fever or pain. Use 1000mg every six hours as needed. Avoid using more than 3000mg in a 24 hour period. If this is an acute injury, ice can be applied to the area of pain for the first 3 days to help decrease pain and inflammation. After the first 3 days, a heating pad can be used over the area for continued soothing relief. You should schedule a follow-up appointment on Sunday with [facility], [phone] for further evaluation and treatment of your back pain and for release back to work. Return to the Emergency Department if your current symptoms worsen despite treatment course outlined above, or if you develop any of the following symptoms : intractable pain despite aforementioned treatment course, loss of control of your bowel or bladder, numbness or tingling in your groin, or development of a fever. Problem Qualifiers Primary Impression: Strain of lumbar region Encounter type: initial encounter Qualified Codes: S39.012A - Strain of muscle, fascia and tendon of lower back, initial encounter
[2017-07-06] MEDS ORDERED: FLEXERIL HOME PACK 10 MG VIAL PO STA (19:19)
[2017-07-06] MEDS ORDERED: CYCL5TAB PO (19:25)
[2017-07-06 19:41] VITALS: BP 124/67; PULSE 79; O2SAT 99
== END 2017-07-06 19:43 | disposition home or self-care (01) ==
LOC: C.EDB 18:05 → C.EDD 19:43
DX: S39.012A Strain of muscle, fascia and tendon of lower back, initial encounter (principal); X58.XXXA Exposure to other specified factors, initial encounter; Y99.0 Civilian activity done for income or pay

== ENCOUNTER → 2017-07-18 | Outpatient (CLI) | payer OTHER ==
[~2017-07-18] MED LIST changes: -ACET-1138 PO; +ASCO500T3 PO; -ASPEC81 PO; -CALCTAB5 PO; +CHOLCAP5 PO; -CLB200 PO; -CLC100 PO; +CYAN100020 PO; -FIBER PO; +FSM70 PO; +MAGN400T6 PO; -OXYSR10 PO; +POTA99TA PO; -RXC5 PO
== END | disposition home or self-care (01) ==
LOC: C.LABSPEC 10:41
PROVIDERS: ATTEND Physician Assistant
DX: R39.9 Unspecified symptoms and signs involving the genitourinary system (principal)

== ENCOUNTER → 2017-12-21 | Outpatient (CLI) | payer OTHER ==
[2017-12-21 12:36] LABS: BLOOD UREA NITROGEN 13 mg/dl (7-18); CALCIUM 8.5 mg/dl (8.5-10.1); CARBON DIOXIDE 27 mmol/L (21-32); CHOLESTEROL 186 mg/dl (0-200); CREATININE 0.64 mg/dl (0.60-1.20); GLUCOSE 93 mg/dl (70-99); LDL CHOLESTEROL CALCULATED 114 mg/dl; SODIUM 141 mmol/L (136-145)
== END | disposition home or self-care (01) ==
LOC: C.LAB1850 11:18
PROVIDERS: ATTEND Internal Medicine
DX: Z00.00 Encounter for general adult medical examination without abnormal findings (principal); M85.80 Other specified disorders of bone density and structure, unspecified site; M81.0 Age-related osteoporosis without current pathological fracture; Z13.29 Encounter for screening for other suspected endocrine disorder

== ENCOUNTER → 2017-12-25 | Outpatient (CLI) | payer OTHER | END | disposition home or self-care (01) | LOC: C.LAB 16:14 | PROVIDERS: ATTEND Internal Medicine | DX: R39.9 Unspecified symptoms and signs involving the genitourinary system (principal) ==

== ENCOUNTER 2019-01-14 07:31 | Inpatient (IN) ==
--- NOTE | 2018-12-20 08:52 | History & Physical Report ---
Date of Service December 20, 2018 date of surgery: 01-14-19 Assessment & Plan (1) Localized osteoarthritis of right knee: Risks and benefits of procedure discussed in detail today, patient would like to proceed with a Right total knee replacement at [facility] as scheduled. will obtain medical clearance prior to surgery with Dr. Ramey as well as obtain PATs at [facility]. Will place on ASA 81mg po bid x 1 month post op, f/u 2 weeks post op for routine post-operative care and x-ray, sooner if having any problems. will make arrangements for OPPT at the time of discharge. At this point in time, has failed conservative measures and would like to proceed with surgical intervention. History of Present Illness Chief Complaint: right knee pain Primary Care Provider: Gibson Laura MD Ms Becker is a 63 year old female who complains of right knee pain, presents for pre-op eval prior to a right total knee replacement at [facility]. She presents with pain, crepitus, decreased rom and stiffness on the right side. She states that the symptoms have been chronic non-traumatic. her pain occurs constantly with intermittent worsening. Currently the patient states that the symptoms are moderate-severe. The pain is described as aching, sharp and throbbing. The symptoms are aggravated by ascending stairs, daily activities, descending stairs, first steps while awake, weight bearing and walking. Lillie states that the symptoms are relieved by no specific treatments. In addition to right knee pain the patient is also experiencing instability, joint pain, crepitus, decreased mobility, limping, pain after activity and stiffness. Prior NSAIDs include ibuprofen and Aleve. She has been treated with previous Cortisone & Visco in the past. Patient has had arthroscopic surgery. 07/01/2014 Dr. Huber performed right knee arthroscopic partial medial meniscectomy, chondroplasty patella at [facility]. Allergies Allergy/AdvReac Type Severity Reaction Status Date / Time No Known Drug Allergies Allergy Verified 12/17/18 10:03 Home Medications Home Medications Medication Instructions Recorded Confirmed Type alendronate 70 mg PO WK 12/17/18 12/17/18 History cholecalciferol (vitamin D3) 5,000 unit PO DAILY 12/17/18 12/17/18 History [Vitamin D3] cyanocobalamin (vitamin B-12) 500 mcg PO DAILY 12/17/18 12/17/18 History [Vitamin B-12] lactobacillus combination no.4 2,000 mmu cells PO DAILY 12/17/18 12/17/18 History [Probiotic] wqxzvkhgubdr-yaxc-lmdcp acid 1 tab PO DAILY 12/17/18 12/17/18 History [Centrum Women] Past Med/Surg History Medical History Carpal tunnel syndrome GERD (gastroesophageal reflux disease) Osteopenia Osteoporosis Right knee pain Surgical History History of colonoscopy History of left knee replacement History of tubal ligation Family History Mother Family history of diabetes mellitus (DM) Social History Preferred Language: Wolof Communication Ability: Effective 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 Beliefs That Will Affect Care: None Current Living Situation: Spouse Other Information That Helps Us Care for You: No Feels Safe at Home: Yes Smoking Status: Never smoker Do You Dip or Chew Tobacco: No ; Hx Alcohol Use: No Review of Systems Review of Systems: All systems reviewed & are unremarkable except as noted in HPI & below Constitutional: no fever, no chills and no sweats Respiratory: no cough and no dyspnea Cardiovascular: no chest pain, no dyspnea and no orthopnea Gastrointestinal: no abdominal pain, no nausea and no vomiting Musculoskeletal: as per Subjective / HPI Physical Exam Physical Exam: Ht: 5ft 4in Wt: 63.5kg BP: 122/78 Pulse: 78 Constitutional: WD/WN, vitals as above no acute distress Respiratory: normal respiratory effort, lungs clear to auscultation no respiratory distress, no labored breathing and does not use accessory muscles Cardiovascular: RRR, no murmur, no edema Gastrointestinal (Abdomen): normal bowel sounds, soft, nontender, no hepatosplenomegaly Musculoskeletal: right knee: she ambulates with a limp, there is no erythema, warmth, ecchymosis or atrophy noted, positive effusion, greatest tenderness over the medial joint line and anterior knee joint. negative patellar apprehension , there is crepitation with motion, marta's negative, posterior drawer negative. her knee stable with valgus/varus stress. no extensor lag. pain with active range of motion, AROM 0/3/110, Passive ROM 0/3/115. No pain with active/passive ROM of ankle. Lower Extremity Strength normal. Lower Extremity Neuro-vascular is normal Results & Data Diagnostic Findings Right Knee X-ray from 12/20/18 showing advanced degenerative changes to the right knee, narrowing of the medial compartment and patello-femoral joint with patellar spurring noted, findings showing joint space narrowing of the medial compartment and patello-femoral joint, osteophyte formation and subchondral sclerosis noted. overall varus alignment. no acute bony pathology noted.
--- NOTE | 2018-12-20 09:33 | PAT Medication Instructions ---
Medication Instructions Date of Service December 20, 2018 Home Medications alendronate 70 mg PO WK cholecalciferol (vitamin D3) [Vitamin D3] 5,000 unit PO DAILY cyanocobalamin (vitamin B-12) [Vitamin B-12] 500 mcg PO DAILY lactobacillus combination no.4 [Probiotic] 2,000 mmu cells PO DAILY ikiebqfsbihg-hqlk-xptsm acid [Centrum Women] 1 tab PO DAILY Continue as directed alendronate 70 mg PO WK DO NOT take the morning of surgery cholecalciferol (vitamin D3) [Vitamin D3] 5,000 unit PO DAILY cyanocobalamin (vitamin B-12) [Vitamin B-12] 500 mcg PO DAILY lactobacillus combination no.4 [Probiotic] 2,000 mmu cells PO DAILY sjzesbtarmqy-xmco-yjllb acid [Centrum Women] 1 tab PO DAILY Take morning of surgery NOTHING TO EAT OR DRINK AFTER MIDNIGHT Other Notes If you have any questions please call us at [phone] or [phone] or [phone] or [phone]
--- NOTE | 2018-12-20 11:08 | Anesthesiology Consultation ---
Date of Service December 20, 2018 Assessment & Plan (1) Encounter for pre-operative examination: S/P L TKA 07/2016 -- SAB AND PNB WITHOUT COMPLICATIONS, PT REPORTS GOOD EXPERIENCE. Chart Review Chart Review: Acceptable Risk for Surgery (pending PCP clearance 12/26 (MNP)) and Patient seen in Pre Admission Testing Teaching & Discussion Instructed NPO after midnight before surgery, except medications with 15 cc of water. Medication instructions provided according to the PAT guidelines. History Surgery Operation Date: 01/14/19 08:35 Proposed Procedures p Right Total Knee Arthroplasty - Breezy Huber DO Height/Weight Height: 5 ft 4 in Weight: 65.3 kg Allergies Allergy/AdvReac Type Severity Reaction Status Date / Time No Known Drug Allergies Allergy Verified 12/17/18 10:03 Medications Home Medications Medication Instructions Recorded Confirmed Last Taken alendronate 70 mg PO WK 12/17/18 12/17/18 Unknown cholecalciferol (vitamin D3) 5,000 unit PO DAILY 12/17/18 12/17/18 Unknown [Vitamin D3] cyanocobalamin (vitamin B-12) 500 mcg PO DAILY 12/17/18 12/17/18 Unknown [Vitamin B-12] lactobacillus combination no.4 2,000 mmu cells PO DAILY 12/17/18 12/17/18 Unknown [Probiotic] uydrnqkwqrfm-joyt-[id number] acid 1 tab PO DAILY 12/17/18 12/17/18 Unknown [Centrum Women] Past Medical History Medical History Carpal tunnel syndrome GERD (gastroesophageal reflux disease) Osteopenia Osteoporosis Right knee pain Exercise / Class Metabolic Activity II 4-5 Yardwork/Stairs/Walk up hill (Pt denies CP or SOB with yardwork; no stairs at home.) Past Family History Family History Mother Family history of diabetes mellitus (DM) Past Surgical History Surgical History History of colonoscopy History of left knee replacement History of tubal ligation Past Anesthesia History No Hx of Anesthesia Complications and No Family Hx of Anesthesia Complications History of PONV No Hx of PONV and No Hx of Motion Sickness Social History Smoking Status: Never smoker Do You Dip or Chew Tobacco: No Hx Alcohol Use: No substance use type: does not use Review of Systems Pt denies any recent chest pain, shortness of breath, palpitations, cough, fever or URI. Physical Exam Vital Signs BP: 102/64 P: 79bpm SPO2: 99% RA T: 98.0 F R: 12 ENMT Mouth: + dentures and + edentulous Thyromental Distance: > or= 3.5 Finger Breadths (3.5) Mallampati Class: III Neck normal visual inspection; neck extension not limited Respiratory normal respiratory effort Auscultation: lungs clear to auscultation bilaterally Cardiovascular Rate/Rhythm: regular rate and regular rhythm Heart Sounds: no murmur Extremities: no edema Testing Laboratory Results 12/20/18 11:18 12/20/18 11:18 PT 10.3 Seconds (9.0-12.0) 12/20/18 11:18 INR 1.0 (0.9-1.1) 12/20/18 11:18 APTT 26.4 Seconds (21.0-31.0) 12/20/18 11:18 Hemoglobin A1c 6.0 % (4.5-5.6) H 12/20/18 11:18 Urine Color Yellow 12/20/18 11:18 Urine Appearance Cloudy (Clear) A 12/20/18 11:18 Urine pH 7.5 (4.5-7.5) 12/20/18 11:18 Ur Specific [place] 1.021 (1.000-1.030) 12/20/18 11:18 Urine Protein Negative (Negative) 12/20/18 11:18 Urine Glucose (UA) Negative (Negative) 12/20/18 11:18 Urine Ketones Negative (Negative) 12/20/18 11:18 Urine Nitrite Negative (Negative) 12/20/18 11:18 Ur Leukocyte Esterase 2+ (Negative) H 12/20/18 11:18 Urine WBC (Auto) 10-30 /hpf (0-5) H 12/20/18 11:18 Urine RBC (Auto) 0-4 /hpf (0-4) 12/20/18 11:18 U Hyaline Cast (Auto) 1-5 /lpf (0-5) 12/20/18 11:18 U Epithel Cells (Auto) 10-20 /lpf (0-5) H 12/20/18 11:18 Urine Bacteria (Auto) Negative (Negative) 12/20/18 11:18 Blood Type A Positive 12/20/18 11:18 Antibody Screen NEGATIVE 12/20/18 11:18 Electrocardiogram Date: 12/20/18 Findings: + NSR @ (70bpm) Chest X-Ray Date: 12/20/18 Findings: + NAD
--- NOTE | 2018-12-20 11:54 | XRay Report ---
TWO VIEW CHEST CLINICAL HISTORY: Preoperative examination. FINDINGS: PA and lateral chest radiographs are compared to study dated 06/28/2016. The cardiomediastin al silhouette is unremarkable. Chronic interstitial thickening is similar to previous. The lungs appe ar hyperinflated. Apical scarring is observed. There are scattered calcified granulomas. No airspace consolidation or pleural effusion is identified. There is no pneumothorax. The skeletal structures ar e osteopenic. The bony thorax appears intact. IMPRESSION: No active disease in the chest. Electronically signed by: Adan Christina M.D. 12/20/2018 11:52 AM
[2018-12-20 12:06] LABS: Basophils # (auto) 0.04 K/uL (0-0.2); Basophils % (auto) 0.8 %; Eosinophils # (auto) 0.13 K/uL (0-0.5); Eosinophils % (auto) 2.5 %; Hematocrit (blood only) 41.9 % (37-47); Hemoglobin 14.7 g/dL (12.0-16.0); Lymphocytes # (auto) 1.33 K/uL (1.2-3.4); Lymphocytes % (auto) 25.2 %; Mean Corpuscular Hemoglobin 30.4 pg (25-34); Mean Corpuscular Hgb Conc 35.1 g/dL (32-36); Mean Corpuscular Volume 86.6 fL (80-100); Monocytes # (auto) 0.42 K/uL (0.11-0.59); Neutrophils # (auto) 3.36 K/uL (1.4-6.5); Neutrophils % (auto) 63.5 %; Platelet Count 206 K/uL (130-400); RDW Coefficient of Variation 12.7 % (11.5-14.5); RDW Standard Deviation 40.7 fL (36.4-46.3); Red Blood Count 4.84 M/uL (4.2-5.4); White Blood Count 5.28 K/uL (4.8-10.8)
[2018-12-20 12:09] LABS: Appearance Urine Cloudy (Clear); Bacteria Urine Automated Negative (Negative); Bilirubin Urine Negative (Negative); Blood Urine Negative (Negative); Color Urine Yellow; Glucose Urine UA Negative (Negative); Ketones Urine Negative (Negative); Leukocyte Esterase Urine 2+ (Negative); Nitrite Urine Negative (Negative); Protein Urine Negative (Negative); RBC Urine Automated 0-4 /hpf (0-4); Specific Gravity Urine 1.021 (1.000-1.030); Urobilinogen Urine Negative (Negative); pH Urine 7.5 (4.5-7.5)
[2018-12-20 12:13] LABS: Albumin Level 3.9 gm/dl (3.4-5.0); BUN Creatinine Ratio 21.7 (10-20); Creatinine Clr Calc Pharmacy 74.5 ml/min; Est GFR (Non-African American) 93.2; Potassium 4.1 mmol/L (3.5-5.1)
[2018-12-20 12:18] LABS: Partial Thromboplastin Time 26.4 Seconds (21.0-31.0); Prothrombin Time 10.3 Seconds (9.0-12.0)
[2018-12-20 12:42] LABS: Estimated Average Glucose 126 mg/dl
[~2019-01-14 07:31] MED LIST changes: +ACETAMINOPHEN 500 MG TAB PO SCH; -ASCO500T3 PO; +BUPIVACAINE 0.25% 30 ML VIAL ONE; +BUPIVACAINE 0.5 % 5 MG/1 ML PF 10ML VIAL ONE; +CEFAZOLIN 1000MG 1,000 MG/7.5 ML SYR IV SCH; -CHOLCAP5 PO; -CYAN100020 PO; +CeleBREX 200 MG CAP PO SCH; -FSM70 PO; +GABAPENTIN 300 MG CAP PO SCH; +LR 500ML BOLUS, THEN 15ML/HR IV SCH; -MAGN400T6 PO; -MULT-506 PO; -POTA99TA PO; +ROPIVACAINE 0.5% HCL/PF 150 MG, BUPIVACAINE 0.5% MPF 30 ML, EPINEPHrine 30MG/30ML (OR U... INFIL SCH; +TRANEXAMIC ACID 1,000 MG **IV Intra-op IV SCH; +TRANEXAMIC ACID 1,000 MG **IV Pre-op IV SCH; +dexAMETHasone 4 MG TAB PO SCH
[2019-01-14] MEDS ORDERED: MIDAZOLAM HCL 1 MG/ML 2ML VIAL ONE (08:05)
[2019-01-14] MEDS ORDERED: LIDOCAINE HCL 2% 2 ML VIAL/AMP(20MG/ML) INFIL ONE (08:06)
[2019-01-14] MEDS ORDERED: ONDANSETRON INJ 2 MG/ML 2 ML VIAL ONE (08:06)
[2019-01-14] MEDS ORDERED: PROPOFOL IV EMULSION 10 MG/ML 20 ML VIAL IV ONE (08:06)
[2019-01-14] MEDS ORDERED: fentaNYL citrate 100 MCG/2 ML VIAL ONE (08:06)
--- NOTE | 2019-01-14 08:46 | History & Physical Bridge Note ---
Date of Service January 14, 2019 History & Physical Bridge Note I have examined the patient, reviewed the History & Physical and in the interval since the performance of the History & Physical I have noted the following changes of clinical significance: no changes noted
[2019-01-14] MEDS ORDERED: BACITRACIN INJ 50,000 UNIT VIAL ONE (09:23)
[2019-01-14] MEDS ORDERED: ORTHO JOINT ANESTHETIC ONE (09:23)
[2019-01-14] MEDS ORDERED: ePHEDrine sulfate 50 MG/ML AMP IV PRN (10:18)
[2019-01-14] MEDS ORDERED: ATROPINE SULFATE 0.1 MG/ML 10ML SYR IV PRN (10:18)
[2019-01-14] MEDS ORDERED: PHENYLEPHRINE 100MCG/ML 5ML SYR ONE (10:50)
--- NOTE | 2019-01-14 10:54 | Operative Report ---
Post Operative Report Pre & Post Diagnosis Operation Date: 01/14/19 10:15 Pre-Op Diagnosis: Right Knee Osteoarthritis Post-Op Diagnosis: Right Knee Osteoarthritis Procedure Operation Date: 01/14/19 10:15 Actual Procedures p Right Total Knee Arthroplasty, Cemented(Right) utilizing [employer] journey to non-block total knee arthroplasty size 4 femur 4 tibia polyethylene 12 patella 29 yonny- Breezy Huber DO Surgeon Breezy Huber DO Maintenance Custodian Tyrell SCHUMACHER Estimated Blood Loss 5 Findings Consistent with Post-Op Diagnosis Patient presents with severe end-stage tricompartmental degenerative joint disease varus alignment of the right knee no response to conservative management intraoperative findings revealed evidence of subchondral sclerosis marginal osteophytes cystic changes eburnated bone moderate to large effusion Specimens Bone and cartilage Drains Bone and cartilage Anesthesia Type General Regional Complications none Disposition Accompanied Patient To Recovery: No Disposition: Recovery Room Indications Patient presents with severe end-stage tricompartmental degenerative joint disease failing attempts at conservative management physical therapy anti- inflammatories relative rest activity modification corticosteroid injection Visco supplementation bracing patient presents with the above intraoperative findings noted. Description of Procedure Patient was properly identified by the surgeon prior to institution of surgery After proper prepping and draping of the Right lower extremity anterior midline incision was made over the region of the extensor extensor mechanism after meticulous hemostasis was obtained and maintained in subcutaneous tissues a medial parapatellar incision was made The patella was subluxed lateralward the medial lateral gutter were cleaned from any hypertrophic synovitis and scar tissue of the distal femoral block was placed and the distal femoral osteotomy cut was made subsequently the chamfers anterior and posterior osteotomy cuts were made utilizing the 4-in-1 block the tibia was subsequently subluxed anteriorward medial and ateral meniscal remnants were excised in their entirety remnants of the anterior and posterior cruciate ligaments were excised in their entirety excellent exposure of the proximal tibia was obtained the tibial osteotomy guide was placed on the proximal tibial osteotomy cut was made once again the knee was irrigated with copious amounts of sterile saline solution the patella was subsequently everted lateralward thickened scar tissue around the patella was removed the patella was subsequently cut utilizing a freehand technique and was drilled prepared for final preparation and placement of patella socially flexion-extension gaps were checked and the equal and symmetric trials were placed to the appropriate femoral and tibial trials with poly-spacer being placed for equal flexion and extension gaps and full range of motion including extension to 0 and flexion to 140 the trial components after having been taken to recovery range of motion was subsequently removed meticulous hemostasis was obtained and maintained subsequently a knee block injection of joint cocktail including ropivacaine 0.5% 150 mg. Bupivacaine 0.5% epinephrine 1-200,030 mL's toradol 30 mg dexamethasone 4 mg ketamine 10 mg clonidine 100 micrograms normal saline solution 30 mg was infiltrated into the soft tissues of the posterior knee medial lateral gutters and periosteal synovium special attention was paid to protect neurovascular structures at all times subsequently trial components having been removed the knee was irrigated with sterile saline solution. debris was removed the proximal tibia was subsequently prepared and was made ready for the placement of the tibial component tibial component was also cemented and tamped into position the femoral component was subsequently placed and cemented in the position the patellar component was subsequently cemented in position because hemostasis once again obtained and maintained wound having been thoroughly irrigated with debridement and debridement lavage was p erformed as well as a medial parapatellar incision closed with #1 Vicryl in interrupted fashion subcutaneous was closed with #2 Vicryl skin was closed with skin clips. PA-C was necessary for prepping and drapping as well as wound closure of deep fascia Sub cutaneous tissue and skin and was necessary for the case. A sterile compressive dressing was placed patient was taken to recovery in stable condition of report dictated by Mayo I attest to the content of the Intraoperative Record and any orders documented therein. Any exceptions are noted below. I attest to the content of the Intraoperative Record and any orders documented therein. Any exceptions are noted below.
--- NOTE | 2019-01-14 12:06 | XRay Report ---
TWO VIEWS RIGHT KNEE CLINICAL HISTORY: Postoperative examination. FINDINGS: AP and crosstable lateral portable views of the right knee are obtained. A right knee arthr oplasty is in near anatomic alignment. There has been undersurface remodeling of the patella. No acut e fracture is seen. There are expected postoperative changes around the knee including a surgical vero in, soft tissue edema, and subcutaneous gas. IMPRESSION: Expected postoperative changes status post right knee arthroplasty. No acute fracture is seen. Electronically signed by: Adan Christina M.D. 01/14/2019 12:05 PM
--- NOTE | 2019-01-14 12:43 | Anesthesiology Progress Note ---
Date of Service January 14, 2019 Anesthesia Post Procedure Vital Signs Vital Signs: Temp Pulse Pulse Resp BP Pulse Ox 01/14/19 12:25 36.6 C 88 16 114/60 93 01/14/19 12:15 94 H 16 114/58 L 94 01/14/19 12:05 93 H 16 119/62 97 01/14/19 11:55 90 16 115/62 99 01/14/19 11:45 88 16 109/56 L 99 01/14/19 11:38 36.7 C 93 H 16 107/59 L 96 01/14/19 07:42 36.6 C 85 18 141/69 H 100 Transfer of Care Handoff Completed per policy Notes Mental Status: alert / awake / arousable and participated in evaluation Nausea / Vomiting: adequately controlled Pain: adequately controlled Airway Patency, RR, SpO2: stable & adequate BP & HR: stable & adequate Hydration State: stable & adequate Neuraxial Anesthesia: was administered and sensory block is resolving Anesthetic Complications: no major complications apparent and Pt Satisfied with anesthetic care
[2019-01-14] MEDS ORDERED: ONDANSETRON INJ 2 MG/ML 2 ML VIAL IV PRN (13:05)
[2019-01-14] MEDS ORDERED: NALOXONE HCL 0.4 MG/1 ML VIAL/CARP IV PRN (13:05)
[2019-01-14] MEDS ORDERED: METOCLOPRAMIDE HCL INJ 5 MG/ML 2 ML VIAL IV PRN (13:05)
[2019-01-14] MEDS ORDERED: MAGNESIUM HYDROXIDE SUSP 30 ML UDC PO PRN (13:05)
[2019-01-14] MEDS ORDERED: OXYCODONE HCL IR 5 MG TAB (IMMEDIATE RELEASE) PO PRN (13:05)
[2019-01-14] MEDS ORDERED: bisacodyL 10 MG SUPP PR PRN (13:05)
[2019-01-14] MEDS ORDERED: HYDROmorphone INJ 0.5 MG/0.5 ML SYR IV PRN (13:05)
[2019-01-14] MEDS: ACETAMINOPHEN 500 MG TAB PO SCH ×2 (15:01→21:59)
[2019-01-14] MEDS: SODIUM CHLORIDE 0.9% 1000ML 1,000 ML IV SCH (15:01)
[2019-01-14] MEDS: KETOROLAC TROMETHAMINE 15 MG/ML VIAL IV SCH (18:38)
[2019-01-14] MEDS: CEFAZOLIN 1000MG 1,000 MG/7.5 ML SYR IV SCH (18:38)
[2019-01-14] MEDS: ASPIRIN 81 MG ECTAB PO SCH (20:49)
[2019-01-14] MEDS: DOCUSATE SODIUM 100 MG CAP PO SCH (20:49)
[2019-01-14] MEDS ORDERED: SENNA 8.6 MG TAB PO SCH (21:00)
[2019-01-15] MEDS: KETOROLAC TROMETHAMINE 15 MG/ML VIAL IV SCH ×3 (00:25→11:35)
[2019-01-15] MEDS: SODIUM CHLORIDE 0.9% 1000ML 1,000 ML IV SCH (00:28)
[2019-01-15] MEDS: CEFAZOLIN 1000MG 1,000 MG/7.5 ML SYR IV SCH (03:09)
[2019-01-15] MEDS: ACETAMINOPHEN 500 MG TAB PO SCH ×2 (05:47→14:34)
[2019-01-15 07:21] LABS: Hematocrit (blood only) 34.2 % (37-47); Hemoglobin 11.4 g/dL (12.0-16.0); Mean Corpuscular Hemoglobin 29.3 pg (25-34); Mean Corpuscular Hgb Conc 33.3 g/dL (32-36); Mean Corpuscular Volume 87.9 fL (80-100); Mean Platelet Volume 10.2 fL (7.4-10.4); Platelet Count 140 K/uL (130-400); RDW Coefficient of Variation 12.8 % (11.5-14.5); RDW Standard Deviation 41.3 fL (36.4-46.3); Red Blood Count 3.89 M/uL (4.2-5.4); White Blood Count 11.16 K/uL (4.8-10.8)
[2019-01-15 07:58] LABS: BUN Creatinine Ratio 19.5 (10-20); Calcium 8.1 mg/dl (8.5-10.1); Creatinine Clr Calc Pharmacy 76.2 ml/min; Est GFR (African American) 105.9; Est GFR (Non-African American) 91.4; Potassium 4.2 mmol/L (3.5-5.1)
--- NOTE | 2019-01-15 08:33 | Orthopedic Progress Note ---
Date of Service January 15, 2019 Assessment & Plan (1) Localized osteoarthritis of right knee: Postop day 1 status post right TKA. PT/OT protocols today. Weightbearing as tolerated. DVT prophylaxis with ASA twice daily, Joe, MAYELA durán. Pain management with p.o. oxycodone, Tylenol, IV hydromorphone. DC planning patient is planning for outpatient PT post discharge. We will recheck her later this afternoon to see how she is progressing with her physical therapy. Subjective Postop day 1 status post right total knee arthroplasty. Patient is currently sitting up in her chair at the bedside eating her breakfast. She has no complaints this morning. Pain is controlled. She denies shortness of breath, chest pain, lightheadedness. She is hoping to go home today possibly. Physical Exam Physical Exam: Dressings are clean, dry, and intact. Calves are soft and nontender. Neurovascular is intact. Toes are mobile. Hemovac drainage was 90 mL's from the previous shift. Results & Data Vital Signs (Past 12 Hours) Vital Signs Temp Pulse Resp BP Pulse Ox 01/15/19 07:30 36.5 C 70 18 115/74 97 01/15/19 03:14 36.6 C 74 16 98/59 L 98 01/14/19 23:36 36.6 C 69 16 94/53 L 98 Laboratory Results Laboratory Results WBC 11.16 K/uL (4.8-10.8) H 01/15/19 07:03 RBC 3.89 M/uL (4.2-5.4) L 01/15/19 07:03 Hgb 11.4 g/dL (12.0-16.0) L 01/15/19 07:03 Hct 34.2 % (37-47) L 01/15/19 07:03 MCV 87.9 fL (80-100) 01/15/19 07:03 MCH 29.3 pg (25-34) 01/15/19 07:03 MCHC 33.3 g/dL (32-36) 01/15/19 07:03 RDW Std Deviation 41.3 fL (36.4-46.3) 01/15/19 07:03 RDW Coeff of Ernesto 12.8 % (11.5-14.5) 01/15/19 07:03 Plt Count 140 K/uL (130-400) 01/15/19 07:03 MPV 10.2 fL (7.4-10.4) 01/15/19 07:03 Immature Gran % (Auto) 0.0 % 12/20/18 11:18 Neut % (Auto) 63.5 % 12/20/18 11:18 Lymph % (Auto) 25.2 % 12/20/18 11:18 [place] % (Auto) 8.0 % 12/20/18 11:18 Eos % (Auto) 2.5 % 12/20/18 11:18 Baso % (Auto) 0.8 % 12/20/18 11:18 Immature Gran # (Auto) 0.00 K/uL (0.00-0.02) 12/20/18 11:18 Neut # (Auto) 3.36 K/uL (1.4-6.5) 12/20/18 11:18 Lymph # (Auto) 1.33 K/uL (1.2-3.4) 12/20/18 11:18 [place] # (Auto) 0.42 K/uL (0.11-0.59) 12/20/18 11:18 Eos # (Auto) 0.13 K/uL (0-0.5) 12/20/18 11:18 Baso # (Auto) 0.04 K/uL (0-0.2) 12/20/18 11:18 PT 10.3 Seconds (9.0-12.0) 12/20/18 11:18 INR 1.0 (0.9-1.1) 12/20/18 11:18 APTT 26.4 Seconds (21.0-31.0) 12/20/18 11:18 PTT Ratio 1.0 12/20/18 11:18 Sodium 141 mmol/L (136-145) 01/15/19 07:03 Potassium 4.2 mmol/L (3.5-5.1) 01/15/19 07:03 Chloride 111 mmol/L (98-107) H 01/15/19 07:03 Carbon Dioxide 25 mmol/L (21-32) 01/15/19 07:03 Anion Gap 5.0 (3-11) 01/15/19 07:03 BUN 14 mg/dl (7-18) 01/15/19 07:03 Creatinine 0.69 mg/dl (0.6-1.2) 01/15/19 07:03 Est Cr Clr Drug Dosing 76.2 ml/min 01/15/19 07:03 Est GFR ( Amer) 105.9 01/15/19 07:03 Est GFR (Non-Af Amer) 91.4 01/15/19 07:03 BUN/Creatinine Ratio 19.5 (10-20) 01/15/19 07:03 Glucose 117 mg/dl (70-99) H 01/15/19 07:03 Estimat Average Glucose 126 mg/dl 12/20/18 11:18 Hemoglobin A1c 6.0 % (4.5-5.6) H 12/20/18 11:18 Calcium 8.1 mg/dl (8.5-10.1) L 01/15/19 07:03 Albumin 3.9 gm/dl (3.4-5.0) 12/20/18 11:18 Urine Color Yellow 12/20/18 11:18 Urine Appearance Cloudy (Clear) A 12/20/18 11:18 Urine pH 7.5 (4.5-7.5) 12/20/18 11:18 Ur Specific [place] 1.021 (1.000-1.030) 12/20/18 11:18 Urine Protein Negative (Negative) 12/20/18 11:18 Urine Glucose (UA) Negative (Negative) 12/20/18 11:18 Urine Ketones Negative (Negative) 12/20/18 11:18 Urine Blood Negative (Negative) 12/20/18 11:18 Urine Nitrite Negative (Negative) 12/20/18 11:18 Urine Bilirubin Negative (Negative) 12/20/18 11:18 Urine Urobilinogen Negative (Negative) 12/20/18 11:18 Ur Leukocyte Esterase 2+ (Negative) H 12/20/18 11:18 Urine WBC (Auto) 10-30 /hpf (0-5) H 12/20/18 11:18 Urine RBC (Auto) 0-4 /hpf (0-4) 12/20/18 11:18 U Hyaline Cast (Auto) 1-5 /lpf (0-5) 12/20/18 11:18 U Epithel Cells (Auto) 10-20 /lpf (0-5) H 12/20/18 11:18 Urine Bacteria (Auto) Negative (Negative) 12/20/18 11:18 Blood Type A Positive 12/20/18 11:18 Antibody Screen NEGATIVE 12/20/18 11:18
[2019-01-15] MEDS: DOCUSATE SODIUM 100 MG CAP PO SCH (08:38)
[2019-01-15] MEDS: ASPIRIN 81 MG ECTAB PO SCH (08:38)
[2019-01-15] MEDS ORDERED: CYANOCOBALAMIN 500 MCG TABLET (VITAMIN B-12) PO SCH (09:00)
[2019-01-15] MEDS ORDERED: MULTIVITAMIN TAB PO SCH (09:00)
[2019-01-15] MEDS ORDERED: CHOLECALCIFEROL 1,000 UNITS TAB PO SCH (09:00)
--- NOTE | 2019-01-15 12:20 | Anesthesiology Progress Note ---
Date of Service January 15, 2019 Anesthesia Post Procedure Vital Signs Vital Signs: Temp Pulse Pulse Pulse Resp BP Pulse Ox 01/15/19 11:55 36.6 C 80 18 110/71 100 01/15/19 07:30 36.5 C 70 18 115/74 97 01/15/19 03:14 36.6 C 74 16 98/59 L 98 01/14/19 23:36 36.6 C 69 16 94/53 L 98 01/14/19 19:59 36.8 C 84 16 111/64 93 01/14/19 16:06 36.5 C 88 16 101/63 97 01/14/19 14:50 36.6 C 78 16 90/57 L 96 01/14/19 13:54 36.6 C 84 14 94/58 L 95 01/14/19 13:22 79 15 94/61 L 94 01/14/19 12:53 36.6 C 87 14 106/68 95 01/14/19 12:45 92 H 16 116/62 94 01/14/19 12:35 89 16 110/60 93 01/14/19 12:25 36.6 C 88 16 114/60 93 Notes Mental Status: alert / awake / arousable and participated in evaluation Nausea / Vomiting: adequately controlled Pain: adequately controlled Airway Patency, RR, SpO2: stable & adequate BP & HR: stable & adequate Hydration State: stable & adequate Neuraxial Anesthesia: sensory block resolved
--- NOTE | 2019-01-15 18:19 | Discharge Summary ---
Date of Service date of discharge: January 15, 2019 date of admission: 01-14-19 Admission HPI Per Admitting Provider Ms Becker is a 63 year old female who complains of right knee pain, presents for pre-op eval prior to a right total knee replacement at [facility]. She presents with pain, crepitus, decreased rom and stiffness on the right side. She states that the symptoms have been chronic non-traumatic. her pain occurs constantly with intermittent worsening. Currently the patient states that the symptoms are moderate-severe. The pain is described as aching, sharp and throbbing. The symptoms are aggravated by ascending stairs, daily activities, descending stairs, first steps while awake, weight bearing and walking. Lillie states that the symptoms are relieved by no specific treatments. In addition to right knee pain the patient is also experiencing instability, joint pain, crepitus, decreased mobility, limping, pain after activity and stiffness. Prior NSAIDs include ibuprofen and Aleve. She has been treated with previous Cortisone & Visco in the past. Patient has had arthroscopic surgery. 07/01/2014 Dr. Huber performed right knee arthroscopic partial medial meniscectomy, chondroplasty patella at [facility]. Principal Diagnosis right knee osteoarthritis Discharge Exam Vital Signs Temp Pulse Pulse Resp BP Pulse Ox 01/15/19 13:18 100 01/15/19 13:13 36.6 C 84 80 18 110/71 100 01/15/19 11:55 36.6 C 80 18 110/71 100 01/15/19 07:30 36.5 C 70 18 115/74 97 01/15/19 03:14 36.6 C 74 16 98/59 L 98 01/14/19 23:36 36.6 C 69 16 94/53 L 98 01/14/19 19:59 36.8 C 84 16 111/64 93 Intake and Output 01/15/19 01/15/19 01/15/19 06:59 14:59 22:59 Intake Total 945 / 3165 850 / 850 Output Total 590 / 1730 Balance 355 / 1435 850 / 850 Intake: IV 945 / 1465 850 / 850 Nss 1000ML 1,000 ml @ 100 mls/ 945 / 945 850 / 850 hr IV .Q10H VAMSHI Rx#:[id number] Output: Urine 500 / 1400 Drain Output 90 / 325 Right Knee 90 / 325 Other: Weight 66.5 kg Patient Weight 01/16/19 06:59 Weight 66.5 kg Constitutional WD/WN, vitals as above no acute distress Musculoskeletal right knee: NVDI, calf SNT, negative jackie sign. DP palpable, able to wiggle toes/ankle movement without difficulty. Incision clean dry and intact. expected post-operative bruising noted. Discharge Data Allergies Allergy/AdvReac Type Severity Reaction Status Date / Time No Known Drug Allergies Allergy Verified 12/26/18 09:56 Consultations 01/14/19 13:05 Consult Case Management - Discharge Planning Routine Procedures Performed Operation Date: 01/14/19 10:15 Actual Procedures p Right Total Knee Arthroplasty, Cemented(Right) - Breezy Huber, Ordered Studies 01/14/19 05:00 US - OR guided needle placemen Routine Hospital Course (1) Localized osteoarthritis of right knee: Postop day 1 status post right TKA. PT/OT protocols today. Weightbearing as tolerated. DVT prophylaxis with ASA twice daily, SCDs, MAYELA hose. Pain management with p.o. oxycodone, Tylenol, IV hydromorphone. she did well in PT today, will discharge home today with outpatient PT. Total Time Total Time Spent Total Time Spent (In Minutes): 20 Total Time Includes: Examination of the Patient, Discharge Planning and Medication Reconciliation Discharge Plan Discharge Items Patient Disposition: Home - Self-Care Reason For Visit: Right Knee Osteoarthritis, presence of left artifi Discharge Diagnosis: Right knee osteoarthritis Activity: Per Instructions section Weightbearing: Right weightbearing Weightbearing Comment: Weightbearing as tolerated with walker Non-emergency contact: Surgeon Call non-emergency contact if: your pain is not controlled, your temperature is above 101.5, your wound has increased redness and your wound has increased drainage Follow-up/Referrals: Gibson Gomes MD [Primary Care Provider] - Diet: Regular Addtl Attending Provider Instructions: as noted below Addtl Stem Shaper Provider Instructions: ACTIVITY RECOMMENDATIONS: SELF CARE INSTRUCTIONS AFTER TOTAL KNEE REPLACEMENT A. You may need to continue a physical therapy program after discharge from the hospital. There are several options available to you. Your doctor will assist you in selecting the best one for you. 1. An out-patient facility 2 to 3 times a week for therapy or home therapy. 2. Continue working on all exercises taught to you in the hospital. Your goals should be to increase bending of your knee to 90 degrees and beyond and to fully straighten your knee. B. You may progress at your own pace from walking with a walker or crutches to a cane; then to no assistive devices. C. Make walking a part of your daily routine. Be up as much as comfortable with rest periods throughout the day. Rest with leg elevation is very important. Use the ice wrap frequently for the first 3-4 weeks. D. There are no restrictions on activities. You may ride in a car, shop, participate in jazz musician and all social activities. E. Wear the long elastic stockings (MAYELA hose) 20 hours a day for 2 weeks after surgery. They can be removed several times a day for laundering and for a bath. F. You may shower, no tub baths until cleared by your doctor. SPECIAL CARE INSTRUCTIONS: VERY IMPORTANT TO READ AND REVIEW A. There are a few signs you need to watch for after you are home. Call [facility] if you notice any of the followin. Increased severe knee pain. Some pain is expected especially when you exercise. 2. Increased swelling in your leg or knee; pain or swelling of the calf muscle in either lower leg. 3. Any fluid drainage from the incision. 4. Shortness of breath or chest pain. B. Please call [facility] at if you have any concerns or questions about your operation or recovery. The doctor or his nurse will return your call promptly. C. You must take antibiotics before dental work, bladder, bowel or other surgery. Your doctor will provide you with a permanent care to carry describing this precaution. IMPORTANT: * REMEMBER TO TAKE ASPIRIN, 81 MG, TWICE DAILY FOR 4 WEEKS UNLESS OTHERWISE DIRECTED. THIS IS YOUR BLOOD THINNER. * HIGH RISK PATIENTS MAY BE PRESCRIBED A STRONGER BLOOD THINNER. THIS WILL BE PROVIDED AT DISCHARGE. * CALL IF INCREASED PAIN, REDNESS, DRAINAGE OR FEVER GREATER THAT 101. * WEAR MAYELA HOSE 20 HOURS PER DAY FOR 2 WEEKS. * DERMABOND Prineo- This is a mesh tape dressing that is covered with glue. It should remain in place until the incision is properly healed, usually 10-14 days. This dressing is designed to naturally slough off. You may trim the excess mesh tape as it peels off. Incision may be briefly wet in a shower. Dry immediately by blotting with a clean, dry towel. Do not bath or swim until instructed by your doctor. Do not scratch, rub, or pick at the dressing. Do not apply any topical ointments or lotions until dressing is completely removed and/or instructed by your doctor. There may be a small piece of suture material at one end of your incision. Do not pull or trim this. If it is bothersome or catching on clothing, you may cover it with a band-aid. . FOLLOW UP VISIT: If appointment is not already scheduled: Please call [facility] to make a follow-up appointment for 2 weeks after your surgery at . Stand-Alone Forms: [facility], Opioid Pain Management Medications and DC Order Prescriptions: New acetaminophen [Tylenol Extra Strength] 500 mg Tablet 1,000 mg PO Q8 14 Days Qty: 84 RF: 0 aspirin [Ecotrin Low Strength] 81 mg Tablet,Delayed Release (Dr/Ec) 81 mg PO BID 30 Days Qty: 60 RF: 0 oxycodone 5 mg Tablet 5 - 10 mg PO Q6H PRN (Reason: pain) Qty: 30 RF: 0 sennosides [Senokot] 8.6 mg Tablet 17.2 mg PO HS Qty: 30 RF: 0 cefadroxil 500 mg capsule 500 mg PO BID Qty: 14 RF: 0 Continued cyanocobalamin (vitamin B-12) [Vitamin B-12] 500 mcg Tablet 500 mcg PO DAILY RF: 0 cholecalciferol (vitamin D3) [Vitamin D3] 5,000 unit Tablet 5,000 unit PO DAILY RF: 0 alendronate 70 mg tablet 70 mg PO WEEKLY RF: 0 Probiotic 3 billion cell capsule 3,000 mmu cells PO DAILY RF: 0 Centrum Women 18-400 mg-mcg tablet 1 tab PO DAILY RF: 0 Discharge Orders: Discharge Order (Routine); Ordered 01/15/19 Ordered By: Elio Joyce/Other Patient Handouts: Surgery Prevent DVT After Admission Data Admit Date/Time: 01/14/19 11:42 Attending Provider: Breezy Huber Admit Provider: Breezy Huber Primary Care Provider: Gibson Gomes V. Other Interventions: Discharge Summary Assessment (RN) Last Done: 01/15/19 13:13 DC Date/Time DO NOT enter until pt leaves facility: 01/15/19 15:13
[2019-01-15] MEDS ORDERED: CeleBREX 200 MG CAP PO SCH (21:00)
== END 2019-01-15 15:13 | disposition home or self-care (01) | DRG 470 ==
LOC: ASU 07:31 → 3E 11:42